=== PATIENT | female | born 1970 | race Caucasian/White ===

== ENCOUNTER → 2021-01-11 07:56 | Outpatient (CLI) | payer OTHER, SELFPAY ==
[2021-01-11 10:04] LABS: Absolute Lymphocyte Count 0.79 X10^3/uL (0.83-4.51); Absolute Neutrophil Count 3.6 X10^3/uL (2.0-7.7); Basophil# 0.02 X10^3/uL; Basophil% 0.4 % (0-1); Eosinophil# 0.15 X10^3/uL; Hematocrit 39.6 % (37-47); Hemoglobin 13.5 g/dL (12.0-15.0); Lymphocyte # 0.79 X10^3/ul (0.83-4.51); Lymphocyte % 15.8 % (19-41); Mean Corp Hgb Conc 34.1 g/dL (32-36); Mean Corpuscular Hgb 32.1 pg (27.0-32.0); Mean Corpuscular Volume 94.1 fL (81-99); Mean Platelet Vol. 10.6 fl (6.2-12.0); Monocyte# 0.48 X10^3/uL; Monocyte% 9.6 % (0-10); NRBC Flagged by Analyzer 0 % (0-5); Neutrophil # 3.55 X10^3/uL (2.7-7.7); Platelet Count 252 K/mm3 (150-450); RBC Distribution Width CV 12.5 % (11.6-14.6); RBC Distribution Width SD 43.4 fl (35.1-43.9); Red Blood Count 4.21 M/mm3 (4.2-5.4)
[2021-01-11 10:24] LABS: AST(SGOT) 20 U/L (15-37); Alanine Aminotransfer ALT/SGPT 33 U/L (13-56); Albumin, Serum 3.9 g/dL (3.2-5.0); Alkaline Phosphatase 74 U/L (45-117); Anion Gap 6 (5-15); BUN 13 mg/dL (7-18); BUN/Creat Ratio 11.1 RATIO (10-20); Chloride 102 mmol/L (98-107); Creatinine, Serum 1.17 mg/dL (0.55-1.02); EST Glomerular Filtration Rate 52 mL/min (>60); Est Glom Filt Rate - Afr Amer 63 mL/min (>60); Globulin 3.9 g/dL (2.2-4.2); Glucose 175 mg/dL (74-106); Potassium 4.3 mmol/L (3.5-5.1); Protein, Total 7.8 g/dL (6.4-8.2); Sodium Level 136 mmol/L (136-145)
== END ==
DX: R10.84 Generalized abdominal pain (principal)
CPT/HCPCS: 36415; 80053; 85025

== ENCOUNTER → 2022-05-22 | Outpatient (CLI) | payer OTHER, SELFPAY ==
[2022-05-22 10:37] LABS: Absolute Neutrophil Count 2.7 X10^3/uL (2.0-7.7); Basophil# 0.02 X10^3/uL; Basophil% 0.5 % (0-1); Eosinophils% 2.3 % (0-5); Hematocrit 40.1 % (37-47); Hemoglobin 13.9 g/dL (12.0-15.0); Lymphocyte % 22.9 % (19-41); Mean Corp Hgb Conc 34.7 g/dL (32-36); Mean Corpuscular Hgb 32.8 pg (27.0-32.0); Mean Corpuscular Volume 94.6 fL (81-99); Mean Platelet Vol. 11.4 fl (6.2-12.0); Monocyte# 0.59 X10^3/uL; Monocyte% 13.5 % (0-10); NRBC Flagged by Analyzer 0 % (0-5); Neutrophil # 2.66 X10^3/uL (2.7-7.7); Neutrophil % 60.8 % (47-70); POSITIVE COUNT YES; Platelet Count 162 K/mm3 (150-450); RBC Distribution Width SD 45.1 fl (35.1-43.9); Red Blood Count 4.24 M/mm3 (4.2-5.4); White Blood Count 4.4 K/mm3 (4.4-11.0)
[2022-05-22 11:01] LABS: Microalbumin,Random Urine 7.6 mg/L (NO RANGE EST.); Microalbumin:Creatinine Ratio 28.2 mg/g CRE (<30 mg/g CRE)
[2022-05-22 11:03] LABS: ALB/GLOB Ratio 0.9 RATIO (0.9-2.4); AST(SGOT) 14 U/L (15-37); Alanine Aminotransfer ALT/SGPT 24 U/L (13-56); Albumin, Serum 3.7 g/dL (3.2-5.0); Alkaline Phosphatase 64 U/L (45-117); Anion Gap 6 (5-15); BUN 17 mg/dL (7-18); BUN/Creat Ratio 16.8 RATIO (10-20); Calcium,Total 8.6 mg/dL (8.5-10.1); Chloride 107 mmol/L (98-107); Cholesterol 167 mg/dL (200); Creatinine, Serum 1.01 mg/dL (0.55-1.02); EST Glomerular Filtration Rate 61 mL/min (>60); Est Glom Filt Rate - Afr Amer 74 mL/min (>60); Estradiol 61.3 pg/mL; Follicle Stimulating Hormone 24.2 mIU/mL; Globulin 4.1 g/dL (2.2-4.2); Glucose 76 mg/dL (74-106); High Density Lipoprotein 67 mg/dL; Luteinizing Hormone 8.1 mIU/mL; Potassium 4.3 mmol/L (3.5-5.1); Protein, Total 7.8 g/dL (6.4-8.2); Sodium Level 139 mmol/L (136-145); T4 Free Direct 0.97 ng/dL (0.76-1.46); Triglycerides 58 mg/dL; Very Low Density Lipoprotein 12 mg/dL (5-40)
[2022-05-22 11:08] LABS: Differential Indicated SCAN CRITERIA MET
[2022-05-22 11:09] LABS: Differential Comment SCANNED; Platelet Estimate ADEQUATE (ADEQ); Platelet Morphology LARGE
== END | disposition home or self-care (01) ==
DX: E11.9 Type 2 diabetes mellitus without complications (principal)
CPT/HCPCS: 36415; 80053; 80061; 82043; 82570; 82670; 83001; 83002; 84439; 84443; 85025

== ENCOUNTER 2022-12-26 05:48 | Day surgery (SDC) | payer OTHER, SELFPAY ==
--- NOTE | 2022-12-17 10:01 | PCM.HP.BLA ---
History and Physical Date of Admission: 12/26/22 HPI: The patient is a 52 year old female presenting for pre-operative visit. She is scheduled for hysteroscopy with endometrial ablation and progestin IUD insertion, for menorrhagia on 12/26/2022. Procedure discussed along with risks, benefits and complications. Other alternatives discussed for management. Consent form signed? Yes. ? ? PAST MEDICAL HISTORY PAST MEDICAL HISTORY Diagnosis Date ? Anxiety ? ? Depression ? ? Diabetes mellitus type 2 (HCC) ? ? Seasonal allergies ? ? ? PAST SURGICAL HISTORY PAST SURGICAL HISTORY Procedure Laterality Date ? DENTAL IMPLANT ? 2018 ? ? ? CURRENT MEDICATIONS Current Outpatient Medications Medication Sig Dispense Refill ? norethindrone (AYGESTIN) 5 mg tablet Take 2 tablets by mouth once daily. 60 tablet 0 ? traZODone (DESYREL) 50 mg tablet 1/2 - 1 tab nightly as needed for sleep . ? ? ? TRULICITY 0.75 mg/0.5 mL pen injector Inject 0.75 mg subcutaneously one time a week. ? ? ? metFORMIN (GLUCOPHAGE) 1,000 mg tablet Take 1,000 mg by mouth once daily. ? ? ? busPIRone (BUSPAR) 15 mg tablet Take 15 mg by mouth once daily. ? ? ? No current facility-administered medications for this visit. ? ? ALLERGIES: Codeine and Fluoxetine ? PERSONAL HISTORY: SOCIAL HISTORY Social History ? Tobacco Use ? Smoking status: Never ? Smokeless tobacco: Never Vaping Use ? Vaping Use: Never used Substance Use Topics ? Alcohol use: Yes ? ? Comment: Occasionally ? Drug use: Not Currently ? ? Types: Marijuana ? FAMILY HISTORY: FAMILY HISTORY No family history on file. ? REVIEW OF SYMPTOMS: GENERAL: denies fevers or chills ENDOCRINOLOGY: has not been on steroids Cardiology : denies palpitations or chest pain Respiratory: denies SOB or cough Hematology: denies history of prolonged bleeding or easy bruising or VTE Allergy: Denies history of personal or family history of allergy to anesthesia ? PHYSICAL EXAMINATION: ? VITALS: Last menstrual period 08/30/2022. ? GENERAL: The patient is well nourished, well hydrated in no acute distress. , The patient is oriented to time, place, and person. NECK: Supple. No lynphadenopathy, normal thyroid, no thyromegaly. LUNGS: Clear to auscultation bilaterally. no wheezes, rhonchi or rales HEART: Regular rate and rhythm, Normal heart sounds, and No murmurs or gallops ? IMPRESSION:menorrhagia ? PLAN: The risks/benefits/alternatives and personal involved for the planned hysteroscopy with endometrial ablation and IUD insertion were reviewed with the patient. Her questions were answered to her satisfaction and she desires to proceed. Consent was signed. I reviewed with her postop instructions and expectations. ? ? I have reviewed and updated past medical and surgical history, medications and allergies Assessment & Plan Assessment/Plan (1) Menorrhagia: (2) Encounter for IUD insertion:
[2022-12-26] VITALS (7 sets, daily range): BP systolic 104–116; BP diastolic 57–65; PULSE 72–79; RESP 16; TEMP 36.1–37; O2SAT 95–100; BMI 27.6
--- NOTE | 2022-12-26 | EMB_PTH ---
PATIENT: DANY MUSA LOC: [facility] – [place] U#:[id number] AGE/SX: 52/F ROOM: RE12/26/[address]: Dr. Norma Lopez MD : 1970 BED: DIS: 12/26/2022 SPEC #: [id number] RECD: 12/26/22 10:51 STATUS: JITENDRA IVEY #: [id number] [place]: 12/26/22 00:[address]: Norma Lopez DEPT: SURGICAL PATHOLOGY RECD BY: Milo Chandler Tissues: Endometrium, NOS Procedures: Surgery Specimen Level IV HEADER OPERATION: Hysteroscopy, endometrial ablation, IUD insertion PRE-OP DIAGNOSIS: Menorrhagia TISSUE SUBMITTED: Endometrial curettings and polyp MICROSCOPIC DIAGNOSIS Endometrial curettings and polyp: Polypoid fragments of benign endometrial tissue with weakly proliferative to weakly secretory endometrium may represent fragments of polyp. Fragments of benign ecto- and endocervical epithelium. SJ:jacques 12/27/2022 MICROSCOPIC DESCRIPTION Slides are reviewed. GROSS DESCRIPTION Received in fixative is one container labeled with the patient's name and designated Endometrial curettings and polyp. The specimen consists of multiple fragments of hemorrhagic soft tissue that in aggregate measure 2.0 x 1.5 x 0.1 cm. The specimen is totally submitted in one cassette. / SJ:rg 12/26/2022 TC:5 CPT: 02841
[2022-12-26 06:23] LABS: Internal QC Validated? YES +Cl - CLEAR BKGD; Pregnancy, Urine Negative Negative
[2022-12-26 06:31] LABS: Hemoglobin 12.8 g/dL (12.0-15.0); Mean Corp Hgb Conc 33.7 g/dL (32-36); Mean Corpuscular Hgb 30.6 pg (27.0-32.0); Mean Corpuscular Volume 90.9 fL (81-99); Platelet Count 247 K/mm3 (150-450); RBC Distribution Width CV 12.7 % (11.6-14.6); RBC Distribution Width SD 42.2 fl (35.1-43.9); Red Blood Count 4.18 M/mm3 (4.2-5.4); White Blood Count 4.5 K/mm3 (4.4-11.0)
[2022-12-26] MEDS: Ketorolac 30 MG/ML Syringe IV (06:39)
[2022-12-26] MEDS: Acetaminophen 500 MG Tablet 1000 MG PO (06:39)
[2022-12-26] MEDS: Lactated Ringers 1,000 ML 15 ML IV (06:39)
[2022-12-26 06:47] LABS: Anion Gap 4 (5-15); BUN 14 mg/dL (7-18); Calcium,Total 8.5 mg/dL (8.5-10.1); Chloride 112 mmol/L (98-107); EST Glomerular Filtration Rate 62 mL/min (>60); Est Glom Filt Rate - Afr Amer 75 mL/min (>60); Estimated Creatinine Clearance 61.61 ml/min; Glucose 116 mg/dL (74-106); Potassium 3.7 mmol/L (3.5-5.1); Sodium Level 141 mmol/L (136-145)
[2022-12-26 07:02] LABS: Bedside Glucose 141 mg/dL (74-106)
--- NOTE | 2022-12-26 07:43 | OP.PCM_ITS ---
Problems Associated Problem List Diagnoses (1) Menorrhagia: (2) Encounter for IUD insertion: Report of Operation Date of Procedure: 12/26/22 Pre-Operative Diagnosis: menorrhagia Post-Operative Diagnosis: same Surgery/Procedure Performed:: Hysteroscopy with endometrial ablation and Liletta IUD insertion Surgeon: Norma Lopez departmental secretary: None Type of Anesthesia: MAC/Supplemental Anesthesiologist: Tonya Flores Special Medications: none Specimen's removed: endometrial curettings and polyp Drains: none Estimated Blood Loss (mL): 10 Fluids Replaced: 1000 Description of Procedure: the patient was taken to the OR where she was prepped and draped in dorsal lithotomy position. The weighted speculum was placed in the vagina and the anterior lip of the cervix was grasped with a single-tooth tenaculum. A paracervical block was administered with 1% lidocaine with 1-100,000 epinephrine solution. The cervix was dilated serially with Hegar dilators. The 5mm hysteroscope was placed into the uterine cavity and the above findings were noted. Bilateral tubal ostia were identified. The uterus sounded to 7cm and the cervical length was 3cm. The endometrial cavity length was 4cm. The hysteroscope was removed. A gentle sharp curettage was done of the uterine cavity. There was a small endometrial polyp noted. At the end of the D&C the hysteroscope was replaced and confirmation of removal of the polyp was confirmed. The specimen was handed off and sent to pathology. The Mckayla device was set to 5 cm. The instrument was then seated into the endometrial ca vity and the indicator was in the green. The cervical seal balloon was inflated and the uterine integrity test was passed. The ablation procedure was initiated and completed without interruption. During the ablation procedure gentle traction was held on the tenaculum and the Mckayla device was held up against the uterine fundus. When the ablation procedure was completed the Mckayla was removed. The Liletta IUD was then inserted in the usual sterile fashion and the strings cut to 2 cm without difficulty. The tenaculum was removed and the tenaculum site was noted to be hemostatic. All sponge and needle counts were correct. A vaginal sweep was performed by me. The patient was awakened and taken to the recovery room in stable condition. Hysteroscopic ins: 100cc normal saline Hysteroscopic outs:50cc Findings: Endometrial cavity: Narrow, lush endometrium, small polyp on the right side of the anterior uterine wall Cervix: Normal Vagina: Normal Grafts/Implants Used: Liletta IUD Procedure Start Time: 07:46 Procedure Stop Time: 07:58 Complications none Admit VTE Documentation VTE Present on Admission: No VTE Mechan Device Prophylaxis: SCD's VTE Pharm Prophylaxis ordered?: No Reason prophylaxis not ordered:: Procedure Not Indicated
[2022-12-26] MEDS: Lidocaine 1% /Epi 1:100 (20ml) 20 ML Vial (07:54)
[2022-12-26] MEDS: Lubricating Jelly 60 GM Tube 30 GM (07:55)
[2022-12-26] MEDS: Levonorgestrel IUD (Liletta) 1 EACH INTRA-UTER (07:55)
--- NOTE | 2022-12-26 08:00 | DCINST_ITS ---
Discharge Instructions Diet Discharge Diet: No restrictions Activity May resume sexual activity in: 1-2 weeks Lifting Restrictions: none Dressing / Incision Call your doctor if your incision/area has: Sudden Increased Bleeding and Foul Smelling Discharge Call your doctor if you observe: Fever of 101 or Higher and Using more than 1 pad per hour (for 2 hrs in a row) Follow Up Care Please Follow Up With: Norma Lopez MD When: 2-4 weeks or as needed. Call [phone] to make an appointment or with any concerns. Test Results: Test results from this visit will be discussed in further detail at your follow- up appointment, if applicable. Discharge Plan Admission Primary Reason for Your Visit: Hysteroscopy D&C with endometrial ablation and IUD insertion Attending Provider: Norma Lopez Primary Care Provider: ARMINDA SHANKAR Discharge Orders/Prescriptions Prescriptions: No Action metformin 500 mg Tablet 500 mg PO BID ibuprofen [Advil] 200 mg Tablet 200 mg PO Q6H PRN (Reason: Pain) norethindrone acetate 5 mg Tablet 10 mg PO DAILY Trulicity 0.75 mg/0.5 mL Pen Injector 0.75 mg SUBCUT [place] Hair, Skin and Nails (biotin) 10,000 mcg Tablet,Chewable 10,000 mcg PO DAILY Other Ambulatory Orders: Basic Metabolic Profile (BMP) (Routine) Timeframe: 20221226 Facility: [facility] - Location: Laboratory Ordered By: Dr. Norma Lopez CBC-Complete Blood Cnt No Diff (Routine) Timeframe: 20221226 Facility: [facility] - Location: Laboratory Ordered By: Dr. Norma Lopez ,Urine (Routine) Timeframe: 20221226 Facility: [facility] - Location: Laboratory Ordered By: Dr. Norma Lopez Referrals / Follow Up: ARMINDA SHANKAR [Other] Disposition Disposition (needs filled in before D/C Order can be placed): Home, Self Care
== END 2022-12-26 09:47 | disposition home or self-care (01) ==
LOC: SDC 05:49 → AC 05:50
PROVIDERS: Anesthesiology; Referring Provider Obstetrics & Gynecology; Visit Provider Obstetrics & Gynecology
PROC: 0U5B8ZZ Destruction of Endometrium, Via Natural or Artificial Opening Endoscopic (ICD-10-PCS; CPT 58558; principal; 2022-12-26 07:15)
DX: N92.0 Excessive and frequent menstruation with regular cycle (principal); E11.9 Type 2 diabetes mellitus without complications; Z30.430 Encounter for insertion of intrauterine contraceptive device; N84.0 Polyp of corpus uteri; Z79.84 Long term (current) use of oral hypoglycemic drugs
CPT/HCPCS: 58563; 58300; 00952; 80048; 81025; 82962; 85027; 88305; J7120; J2405